=== PATIENT | male | born 1965 | race Caucasian/White ===

== ENCOUNTER 2022-01-02 21:27 | Emergency (ER) | payer MEDICAID ==
[~2022-01-02] VITALS: Ht 180.3 cm; Wt 95.3 kg
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
--- NOTE | 2022-01-02 21:40 | NUR ---
Dr Aaron at bedside assessing patient, doctor noted right ear cerumen impaction
--- NOTE | 2022-01-02 22:15 | NUR ---
ear lavage/cerumen removal performed on right ear. patient tollerated well, patient states he felt relief and was able to hear better once cerumen was removed. patient pleased with results
[2022-01-02] MEDS ORDERED: CEFU250T85 PO (22:37)
--- NOTE | 2022-01-02 22:42 | NUR ---
Patient discharged to home in stable condition. Written and verbal after care instructions given. Patient verbalizes understanding of instructions. Stressed follow up or return to ER for worsening s/s.
[2022-01-03 00:17] VITALS: BP 155/91
== END 2022-01-02 23:00 | disposition home or self-care (01) ==
LOC: ER 21:27
DX: J40 Bronchitis, not specified as acute or chronic (principal); H61.21 Impacted cerumen, right ear; E78.5 Hyperlipidemia, unspecified; I25.10 Atherosclerotic heart disease of native coronary artery without angina pectoris; Z95.5 Presence of coronary angioplasty implant and graft; F17.211 Nicotine dependence, cigarettes, in remission; R03.0 Elevated blood-pressure reading, without diagnosis of hypertension
CPT/HCPCS: A4663